=== PATIENT | male | born 1980 | race African-American/Black ===

== ENCOUNTER 2018-01-29 23:55 | Emergency (ER) | payer SELFPAY ==
[2018-01-30] MEDS ORDERED: NA CHLORIDE 0.9% 100 ML IV ONE (00:47)
[2018-01-30] MEDS ORDERED: CEFTRIAXONE 1000 MG/VIAL ONE (00:47)
[2018-01-30 01:49] LABS: Absolute Lymphocytes (CBC) 3.8 K/uL (0.7-4.9); Absolute Monocytes 0.8 K/uL (0.1-1.3); Absolute Neutrophil 7.7 K/uL (1.8-8.0); Basophils % 0.3 % (0-1.3); Eosinophils % 1.2 % (0-4.4); Hematocrit 36.3 % (39.6-49.0); Lymphocytes % 30.4 % (15.3-44.8); MCH 28.9 pg (27.0-35.0); MCV 86.7 fL (80-100); MPV 8.1 fL (7.6-11.3); Monocytes % 6.5 % (3.3-12.3); RBC Red Blood Cell Count 4.18 M/uL (4.33-5.43)
[2018-01-30 01:57] LABS: BUN Blood Urea Nitrogen 14 mg/dL (7-18); Bicarbonate 29 mmol/L (21-32); Glucose Level 109 mg/dL (74-106); Potassium 3.4 mmol/L (3.5-5.1); Sodium Level 142 mmol/L (136-145)
--- NOTE | 2018-01-30 02:25 | ER ---
Nurse's Notes [facility] Name: Gautam Dixon Jr Age: 37 yrs Sex: Male : 1980 Arrival Date: 01/29/2018 Time: 23:56 Bed 20 Private MD: Diagnosis: Cellulitis of right upper limb Presentation: 01/30 00:14 Presenting complaint: Patient states: Reports he was stung by an insect this AM in his ea right forearm. Reports the swelling started in the right wrist area and moved to his right forearm by this evening. Pt reports he removed a stinger from his right forearm about an hour ago. Transition of care: patient was not received from another setting of care. Onset: The symptoms/episode began/occurred this morning. Anaphylaxis evaluation, no signs or symptoms of anaphylaxis were noted. Onset of symptoms was January 30, 2018. Risk Assessment: Do you want to hurt yourself or someone else? Patient reports no desire to harm self or others. Initial Sepsis Screen: Does the patient meet any 2 criteria? No. Patient's initial sepsis screen is negative. Does the patient have a suspected source of infection? No. Patient's initial sepsis screen is negative. Care prior to arrival: None. 00:14 Method Of Arrival: Ambulatory ea 00:14 Acuity: SASHA 4 ea Triage Assessment: 00:19 General: Appears in no apparent distress. Behavior is calm, cooperative, appropriate ea for age. Pain: Complains of pain in right wrist, right hand and palmar aspect of right forearm Pain currently is 5 out of 10 on a pain scale. Pain began this AM Is continuous. EENT: No signs and/or symptoms were reported regarding the EENT system. Neuro: Level of Consciousness is awake, alert, obeys commands, Oriented to person, place, time, situation. Cardiovascular: Heart tones S1 S2 present Patient's skin is warm and dry. Respiratory: Airway is patent Respiratory effort is even, unlabored, Respiratory pattern is regular, symmetrical, Breath sounds are clear bilaterally. GI: Abdomen is non-distended, Bowel sounds present X 4 quads. : No signs and/or symptoms were reported regarding the genitourinary system. Derm: warmth and swelling noted to right forearm and wrist. Musculoskeletal: Circulation, motion, and sensation intact. Historical: - Allergies: 00:18 No Known Allergies; ea - Home Meds: 00:18 Amoxicillin Oral [Active]; ea - PMHx: 00:18 None; ea - PSHx: 00:18 None; ea - Immunization history:: Adult Immunizations up to date. - Social history:: Smoking status: Patient uses tobacco products, denies chronic smoking, but will smoke occasionally. - Ebola Screening: : No symptoms or risks identified at this time. Screenin:21 Abuse screen: Denies threats or abuse. Nutritional screening: No deficits noted. ea Tuberculosis screening: No symptoms or risk factors identified. Fall Risk None identified. Assessment: 01:06 Reassessment: Patient and/or family updated on plan of care and expected duration. Pain ea level reassessed. Patient is alert, oriented x 3, equal unlabored respirations, skin warm/dry/pink. Respiratory: Airway is patent Respiratory effort is even, unlabored, Respiratory pattern is regular, symmetrical, Breath sounds are clear bilaterally. 02:37 Reassessment: Patient and/or family updated on plan of care and expected duration. Pain ea level reassessed. Patient is alert, oriented x 3, equal unlabored respirations, skin warm/dry/pink. Discharge instructions given to patient, verbalized the understanding of instruction. Vital Signs: 00:21 BP 175 / 95; Pulse 89; Resp 18; Temp 99(O); Pulse Ox 98% on R/A; Weight 113.4 kg; ea Height 5 ft. 5 in. (165.10 cm); Pain 5/10; 01:00 BP 125 / 70; Pulse 68; Resp 18; Pulse Ox 99% ; ea 00:21 Body Mass Index 41.60 (113.40 kg, 165.10 cm) ea ED Course: 01/29 23:56 Patient arrived in ED. am2 01/30 00:06 Eddie Kimble MD is Attending Physician. 00:14 Capri Cornell RN is Primary Nurse. ea 00:17 Triage completed. ea 00:22 Patient has correct armband on for positive identification. Bed in low position. Call ea light in reach. 00:22 Arm band placed on right wrist. Patient placed in an exam room, on a stretcher, on ea pulse oximetry. 00:45 Inserted saline lock: 20 gauge in left antecubital area, using aseptic technique. Blood ea collected. 02:38 No provider procedures requiring assistance completed. IV discontinued, intact, ea bleeding controlled, No redness/swelling at site. Pressure dressing applied. Administered Medications: 00:32 CANCELLED (Duplicate Order): Rocephin - (cefTRIAXone) 1 grams IVPB once over 30 mins; gs (mix in 50 mL NS) 01:06 Drug: Rocephin - (cefTRIAXone) 1 grams Route: IVPB; Infused Over: 30 mins; Site: left ea antecubital; 01:36 Follow up: Response: No adverse reaction; IV Status: Completed infusion; IV Intake: 50mlea Intake: 01:36 IV: 50ml; Total: 50ml. ea Outcome: 02:24 Discharge ordered by . gs 02:39 Discharged to home ambulatory, with family. ea 02:39 Condition: improved 02:39 Discharge instructions given to patient, Instructed on discharge instructions, follow up and referral plans. medication usage, Demonstrated understanding of instructions, follow-up care, medications. 02:41 Patient left the ED. ea Signatures: Tracie Castano Elena, RN RN ea Starr, Gregory, MD MD gs
--- NOTE | 2018-01-30 02:25 | EDPHYS ---
Physician Documentation [facility] Name: Gautam Dixon Jr Age: 37 yrs Sex: Male : 1980 Arrival Date: 01/29/2018 Time: 23:56 Bed 20 Private MD: ED Physician Eddie Kimble HPI: 01/30 02:18 This 37 yrs old Black Male presents to ER via Ambulatory with complaints of cellulitis. gs 02:18 The patient presents with cellulitis of the dorsal aspect of right forearm, the patient gs presents with a swollen area of the dorsal aspect of right forearm and palmar aspect of right forearm. Description: The affected area is moderate sized, erythematous. Onset: The symptoms/episode began/occurred 2 day(s) ago, and became persistent. Possible cause(s): insect sting. Associated signs and symptoms: Pertinent positives: erythema, swelling, Pertinent negatives: foreign body sensation, fever. Modifying factors: the symptoms are alleviated by nothing, the symptoms are aggravated by nothing. Severity of symptoms: At their worst the symptoms were moderate, in the emergency department the symptoms are unchanged. The patient has not experienced similar symptoms in the past. Historical: - Allergies: 00:18 No Known Allergies; ea - Home Meds: 00:18 Amoxicillin Oral [Active]; ea - PMHx: 00:18 None; ea - PSHx: 00:18 None; ea - Immunization history:: Adult Immunizations up to date. - Social history:: Smoking status: Patient uses tobacco products, denies chronic smoking, but will smoke occasionally. - Ebola Screening: : No symptoms or risks identified at this time. ROS: 02:18 Constitutional: Negative for fever. gs 02:18 MS/extremity: Negative for decreased range of motion. 02:18 All other systems are negative. Exam: 02:18 Head/Face: Normocephalic, atraumatic. Eyes: Pupils equal round and reactive to light, gs extra-ocular motions intact. Lids and lashes normal. Conjunctiva and sclera are non-icteric and not injected. Cornea within normal limits. Periorbital areas with no swelling, redness, or edema. ENT: Nares patent. No nasal discharge, no septal abnormalities noted. Tympanic membranes are normal and external auditory canals are clear. Oropharynx with no redness, swelling, or masses, exudates, or evidence of obstruction, uvula midline. Mucous membranes moist. Neck: Trachea midline, no thyromegaly or masses palpated, and no cervical lymphadenopathy. Supple, full range of motion without nuchal rigidity, or vertebral point tenderness. No Meningismus. Chest/axilla: Normal chest wall appearance and motion. Nontender with no deformity. No lesions are appreciated. Cardiovascular: Regular rate and rhythm with a normal S1 and S2. No gallops, murmurs, or rubs. Normal PMI, no JVD. No pulse deficits. Respiratory: Lungs have equal breath sounds bilaterally, clear to auscultation and percussion. No rales, rhonchi or wheezes noted. No increased work of breathing, no retractions or nasal flaring. Abdomen/GI: Soft, non-tender, with normal bowel sounds. No distension or tympany. No guarding or rebound. No evidence of tenderness throughout. Back: No spinal tenderness. No costovertebral tenderness. Full range of motion. Neuro: Awake and alert, GCS 15, oriented to person, place, time, and situation. Cranial nerves II-XII grossly intact. Motor strength 5/5 in all extremities. Sensory grossly intact. Cerebellar exam normal. Normal gait. 02:18 Constitutional: The patient appears alert, awake. 02:18 Musculoskeletal/extremity: Extremities: ROM: no acute changes, Circulation is intact in all extremities. Pulses: are normal with no appreciated deficits, Sensation intact. Compartment Syndrome exam of affected extremity: the dorsal aspect of right forearm and palmar aspect of right forearm is normal. no pain, no numbness, no tingling, no sensation deficit, no palor, no weak pulses. 02:18 Musculoskeletal/extremity: Extremities: noted in the dorsal aspect of right forearm and palmar aspect of right forearm: swelling, tenderness. 02:18 Skin: cellulitis, that is moderate, well demarcated, on the dorsal aspect of right forearm and palmar aspect of right forearm. Vital Signs: 00:21 BP 175 / 95; Pulse 89; Resp 18; Temp 99(O); Pulse Ox 98% on R/A; Weight 113.4 kg; ea Height 5 ft. 5 in. (165.10 cm); Pain 5/10; 01:00 BP 125 / 70; Pulse 68; Resp 18; Pulse Ox 99% ; ea 00:21 Body Mass Index 41.60 (113.40 kg, 165.10 cm) ea MDM: 00:29 Patient medically screened. 02:18 Differential diagnosis: cellulitis. Data reviewed: vital signs, nurses notes. Response gs to treatment: the patient's symptoms have mildly improved after treatment, and as a result, I will discharge patient. 01/30 00:32 Order name: CBC with Diff; Complete Time: 02:18 01/30 00:32 Order name: Basic Metabolic Panel; Complete Time: 02:14 01/30 00:32 Order name: Blood Culture* gs Administered Medications: 00:32 CANCELLED (Duplicate Order): Rocephin - (cefTRIAXone) 1 grams IVPB once over 30 mins; gs (mix in 50 mL NS) 01:06 Drug: Rocephin - (cefTRIAXone) 1 grams Route: IVPB; Infused Over: 30 mins; Site: left ea antecubital; 01:36 Follow up: Response: No adverse reaction; IV Status: Completed infusion; IV Intake: 50mlea Disposition: 01/30/18 02:24 Discharged to Home. Impression: Cellulitis of right upper limb. - Condition is Stable. - Discharge Instructions: Cellulitis, Adult. - Prescriptions for Keflex 500 mg Oral Capsule - take 2 capsule by ORAL route every 12 hours for 7 days; 28 capsule. - Medication Reconciliation Form, Thank You Letter, Antibiotic Education, Prescription Opioid Use form. - Follow up: Private Physician; When: 1 - 2 days; Reason: Recheck today's complaints, Re-evaluation by your physician. Signatures: Dispatcher [employer] Capri Rodney RN RN ea Starr, Gregory, MD MD gs Corrections: (The following items were deleted from the chart) 00:32 00:30 Rocephin - (cefTRIAXone) 1 grams IVPB once over 30 mins; (mix in 50 mL NS) gs ordered. 02:41 02:24 01/30/2018 02:24 Discharged to Home. Impression: Cellulitis of right upper limb. ea Condition is Stable. Forms are Medication Reconciliation Form, Thank You Letter, Antibiotic Education, Prescription Opioid Use. Follow up: Private Physician; When: 1 - 2 days; Reason: Recheck today's complaints, Re-evaluation by your physician. gs
== END 2018-01-30 02:41 | disposition home or self-care (01) ==
LOC: ER 23:55
DX: L03.113 Cellulitis of right upper limb (principal); Z72.0 Tobacco use
CPT/HCPCS: 36415; 80048; 85025; 87040; 96365; 99284

== ENCOUNTER 2019-04-01 23:36 | Emergency (ER) | payer SELFPAY ==
[2019-04-02 00:43] LABS: Absolute Lymphocytes (CBC) 3.5 K/uL (0.7-4.9); Hematocrit 38.4 % (39.6-49.0); Lymphocytes % 34.3 % (15.3-44.8); MPV 7.9 fL (7.6-11.3); RBC Red Blood Cell Count 4.36 M/uL (4.33-5.43)
[2019-04-02 00:53] LABS: Urine Bacteria <20 /HPF (NONE SEEN); Urine Culture Reflex Order REFLEXED; Urine Mucus HEAVY /HPF (NONE SEEN); Urine RBC <5 /HPF (NONE SEEN)
[2019-04-02 01:05] LABS: ALT/SGPT 29 U/L (12-78); AST/SGOT 19 U/L (15-37); Alkaline Phosphatase 69 U/L (45-117); BUN Blood Urea Nitrogen 20 mg/dL (7-18); Bicarbonate 27 mmol/L (21-32); Bilirubin Direct < 0.1 mg/dL (0-0.2); Bilirubin Total 0.2 mg/dL (0.2-1.0); Glucose Level 97 mg/dL (74-106); Lipase 191 U/L (73-393); Potassium 3.5 mmol/L (3.5-5.1); Protein, Total 7.8 g/dL (6.4-8.2); Sodium Level 142 mmol/L (136-145)
[2019-04-02] MEDS ORDERED: KETOROLAC 30 MG/ML INJ ONE (01:30)
--- NOTE | 2019-04-02 02:34 | ER ---
Nurse's Notes [facility] [place], [place] Name: Gautam Dixon Jr Age: 39 yrs Sex: Male : 1980 Arrival Date: 04/01/2019 Time: 23:39 Bed 13 Private MD: Diagnosis: Epididymitis-left Presentation: 04/01 23:48 Presenting complaint: Patient states: that his left testicle is swollen and painful. fc Noticed it 5 days ago. Was seen at the clinic in [place] and given antibiotics. Still taking the Levaquin daily. STates that he came in today because the pain has gotten no better and he now also has a migraine. Transition of care: patient was not received from another setting of care. Onset of symptoms was March 27, 2019. Risk Assessment: Do you want to hurt yourself or someone else? Patient reports no desire to harm self or others. Initial Sepsis Screen: Does the patient meet any 2 criteria? No. Patient's initial sepsis screen is negative. Does the patient have a suspected source of infection? No. Patient's initial sepsis screen is negative. Care prior to arrival: Medication(s) given: Levaquin. 23:48 Method Of Arrival: Ambulatory 23:48 Acuity: SASHA 4 fc Historical: - Allergies: 23:54 No Known Allergies; fc - Home Meds: 23:54 None [Active]; fc - PMHx: 23:54 None; fc - PSHx: 23:54 testicular torsion; fc - Immunization history:: Last tetanus immunization: up to date Flu vaccine is not up to date. - Social history:: Smoking status: Patient uses tobacco products, smokes one-half pack cigarettes per day, Patient uses alcohol, but reports only rare drinking. street drugs, Patient/guardian denies using street drugs, the patient reports quitting approximately .25 years ago. - Ebola Screening: : Patient negative for fever greater than or equal to 101.5 degrees Fahrenheit, and additional compatible Ebola Virus Disease symptoms Patient denies exposure to infectious person Patient denies travel to an Ebola-affected area in the 21 days before illness onset. Screenin/25 00:20 Abuse screen: Denies threats or abuse. Denies injuries from another. Nutritional rr5 screening: No deficits noted. Tuberculosis screening: No symptoms or risk factors identified. Fall Risk IV access (20 points). Total Guaman Fall Scale indicates No Risk (0-24 pts). Assessment: 00:20 General: Appears in no apparent distress. uncomfortable, Behavior is calm, cooperative, rr5 appropriate for age. Pain: Complains of pain in scrotal Pain does not radiate. Pain currently is 8 out of 10 on a pain scale. Quality of pain is described as aching, Pain began gradually, Is intermittent. 00:20 Neuro: Level of Consciousness is awake, alert, obeys commands, Oriented to person, rr5 place, time, situation, Appropriate for age. Cardiovascular: Capillary refill < 3 seconds Patient's skin is warm and dry. Respiratory: Airway is patent Respiratory effort is even, unlabored, Respiratory pattern is regular, symmetrical. GI: No signs and/or symptoms were reported involving the gastrointestinal system. : Urine is clear, Reports pain scrotum, scrotal swelling. EENT: No signs and/or symptoms were reported regarding the EENT system. Derm: Skin is intact, Skin temperature is warm. Musculoskeletal: Circulation, motion, and sensation intact. Capillary refill < 3 seconds. 01:30 Reassessment: Patient appears in no apparent distress at this time. Patient is alert, rr5 oriented x 3, equal unlabored respirations, skin warm/dry/pink. for pain medication given, see AUG. 02:32 Reassessment: Patient appears in no apparent distress at this time. Patient and/or jv1 family updated on plan of care and expected duration. Pain level reassessed. Patient is alert, oriented x 3, equal unlabored respirations, skin warm/dry/pink. pt has just finished ultrasound. 03:17 Reassessment: Patient appears in no apparent distress at this time. Patient and/or jv1 family updated on plan of care and expected duration. Pain level reassessed. Patient is alert, oriented x 3, equal unlabored respirations, skin warm/dry/pink. Patient states feeling better. Patient states symptoms have improved. Vital Signs: 04/01 23:48 BP 159 / 90; Pulse 86; Resp 18; Temp 98.4(O); Pulse Ox 97% on R/A; Weight 113.4 kg (R); fc Height 5 ft. 6 in. (167.64 cm) (R); Pain 02/16; 04/02 01:30 BP 164 / 99; Pulse 64; Resp 16; Pulse Ox 99% ; Pain 8/10; rr5 02:15 BP 138 / 84; Pulse 60; Resp 17; Pulse Ox 98% on R/A; rr5 02:31 BP 146 / 89; Pulse 61; Resp 18; Temp 98.5; Pulse Ox 99% ; Pain 6/10; jv1 03:17 BP 127 / 79; Pulse 61; Resp 18; Temp 98.6; Pulse Ox 99% ; Pain 3/10; jv1 04/01 23:48 Body Mass Index 40.35 (113.40 kg, 167.64 cm) ED Course: 04/01 23:39 Patient arrived in ED. ag3 23:48 Melecio Rice PA is PHCP. cp 23:48 Eddie Kimble MD is Attending Physician. cp 23:48 Arm band placed on Patient placed in an exam room, on a stretcher. fc 23:50 Triage completed. 04/02 00:05 Geovanny Middleton RN is Primary Nurse. rr5 00:15 Urine collected: clean catch specimen, clear. rr5 00:20 Warm blanket given. Head of bed elevated. rr5 00:20 Inserted saline lock: 20 gauge in left forearm, using aseptic technique. Blood rr5 collected. 01:37 Patient has correct armband on for positive identification. Placed in gown. Bed in low rr5 position. Call light in reach. Side rails up X2. 02:22 Ultrasound completed. Patient tolerated well. Patient moved back from ultrasound. lc3 02:29 US Scrotum Testicles In Process Unspecified. EDMS 02:33 Jayed Damon MD is Referral Physician. cp 03:30 IV discontinued, intact, bleeding controlled, No redness/swelling at site. Pressure jv1 dressing applied. 03:30 No provider procedures requiring assistance completed. jv1 Administered Medications: 01:33 Drug: TORadol 30 mg Route: IVP; Site: left forearm; rr5 02:30 Follow up: Response: No adverse reaction; Pain is decreased jv1 02:50 Drug: Zithromax 1 grams Route: PO; jv1 03:30 Follow up: Response: No adverse reaction jv1 03:00 Drug: Rocephin - (cefTRIAXone) 1 grams Route: IVPB; Infused Over: 30 mins; Site: left jv1 forearm; 03:30 Follow up: Response: No adverse reaction jv1 03:53 Follow up: IV Status: Completed infusion jv1 Outcome: 02:33 Discharge ordered by . alma 03:30 Discharged to home ambulatory. jv1 03:30 Condition: improved 03:30 Discharge instructions given to patient, Instructed on discharge instructions, follow up and referral plans. Demonstrated understanding of Prescriptions given X 3. 03:55 Patient left the ED. jv1 Signatures: Dispatcher [employer] EDLroeto Alegria, RN RN Melecio Rolon PA PA cp Cunningham, Laulita lc3 Vicente, Joyce, RN RN jv1 Estelle Campbell ag3 Geovanny Middleton, RN RN rr5
--- NOTE | 2019-04-02 02:34 | EDPHYS ---
Physician Documentation [facility] Name: Gautam Dixon Jr Age: 39 yrs Sex: Male : 1980 Arrival Date: 04/01/2019 Time: 23:39 Bed 13 Private MD: ED Physician Eddie Kimble HPI: 04/02 00:15 This 39 yrs old Black Male presents to ER via Ambulatory with complaints of Testicular cp Pain. 00:15 The patient presents with swelling, of the left testicle, tenderness, of the left cp testicle. 00:15 Onset: The symptoms/episode began/occurred 5 day(s) ago. cp 00:15 Associated signs and symptoms: Pertinent negatives: constipation, diarrhea, dysuria, cp fever, hematuria, nausea, vomiting. Severity of symptoms: in the emergency department the symptoms are unchanged. Historical: - Allergies: 04/01 23:54 No Known Allergies; fc - Home Meds: 23:54 None [Active]; fc - PMHx: 23:54 None; fc - PSHx: 23:54 testicular torsion; fc - Immunization history:: Last tetanus immunization: up to date Flu vaccine is not up to date. - Social history:: Smoking status: Patient uses tobacco products, smokes one-half pack cigarettes per day, Patient uses alcohol, but reports only rare drinking. street drugs, Patient/guardian denies using street drugs, the patient reports quitting approximately .25 years ago. - Ebola Screening: : Patient negative for fever greater than or equal to 101.5 degrees Fahrenheit, and additional compatible Ebola Virus Disease symptoms Patient denies exposure to infectious person Patient denies travel to an Ebola-affected area in the 21 days before illness onset. ROS: 04/02 00:20 Constitutional: Negative for body aches, chills, fever, poor PO intake. cp 00:20 Eyes: Negative for injury, pain, redness, and discharge. cp 00:20 Cardiovascular: Negative for chest pain. 00:20 Respiratory: Negative for cough, wheezing. 00:20 Abdomen/GI: Negative for nausea, vomiting, and diarrhea, vomiting, diarrhea, constipation, anorexia, black/tarry stool, rectal bleeding. 00:20 Back: Negative for radiated pain. 00:20 : Positive for testicular pain Negative for urinary symptoms, hematuria. 00:20 Skin: Negative for cellulitis, rash. 00:20 Neuro: Positive for headache, Negative for altered mental status. 00:20 All other systems are negative. Exam: 00:30 Constitutional: The patient appears in no acute distress, alert, awake, non-toxic, well cp developed, well nourished, obese. 00:30 Head/Face: Normocephalic, atraumatic. cp 00:30 Eyes: Periorbital structures: appear normal, Conjunctiva: normal, no exudate, no injection, Sclera: no appreciated abnormality, Lids and lashes: appear normal, bilaterally. 00:30 ENT: External ear(s): are unremarkable, Nose: is normal, Mouth: Lips: moist, Oral mucosa: moist, Posterior pharynx: Airway: no evidence of obstruction, patent. 00:30 Chest/axilla: Inspection: normal. 00:30 Cardiovascular: Rate: normal, Rhythm: regular. 00:30 Respiratory: the patient does not display signs of respiratory distress, Respirations: normal, no use of accessory muscles, no retractions, labored breathing, is not present. 00:30 Abdomen/GI: Inspection: abdomen appears normal, Bowel sounds: active, all quadrants, Palpation: soft, in all quadrants, mild abdominal tenderness, in the left lower quadrant, rebound tenderness, is not appreciated, voluntary guarding, is not appreciated. 00:30 Back: pain, is absent, ROM is normal. 00:30 : Male external genitalia: swelling, of the left testicle is noted, of the epididymis area, that is mild, tenderness, of the left testicle is noted, of the epididymis area, that is mild. 00:30 Skin: no rash present. Vital Signs: 04/01 23:48 BP 159 / 90; Pulse 86; Resp 18; Temp 98.4(O); Pulse Ox 97% on R/A; Weight 113.4 kg (R); fc Height 5 ft. 6 in. (167.64 cm) (R); Pain 9/10; 04/02 01:30 BP 164 / 99; Pulse 64; Resp 16; Pulse Ox 99% ; Pain 8/10; rr5 02:15 BP 138 / 84; Pulse 60; Resp 17; Pulse Ox 98% on R/A; rr5 02:31 BP 146 / 89; Pulse 61; Resp 18; Temp 98.5; Pulse Ox 99% ; Pain 6/10; jv1 03:17 BP 127 / 79; Pulse 61; Resp 18; Temp 98.6; Pulse Ox 99% ; Pain 3/10; jv1 04/01 23:48 Body Mass Index 40.35 (113.40 kg, 167.64 cm) fc MDM: 04/01 23:57 Patient medically screened. cp 04/02 02:30 ED course: Received phone report from [employer] that testicular US negative for torsion. cp 02:32 Data reviewed: vital signs, nurses notes, lab test result(s), radiologic studies, cp ultrasound. 02:32 Counseling: I had a detailed discussion with the patient and/or guardian regarding: the cp historical points, exam findings, and any diagnostic results supporting the discharge/admit diagnosis, lab results, radiology results, to return to the emergency department if symptoms worsen or persist or if there are any questions or concerns that arise at home. Response to treatment: the patient's symptoms have mildly improved after treatment, and as a result, I will discharge patient. 04/02 00:02 Order name: Urine Microscopic Only; Complete Time: : cp 04/02 00:02 Order name: Basic Metabolic Panel; Complete Time: : cp 04/02 01:19 Interpretation: Normal except: CL 110; BUN 20; GFR 82. cp 04/02 00:02 Order name: CBC with Diff; Complete Time: : cp 04/02 01:19 Interpretation: Normal except: HGB 13.0; HCT 38.4; RDW 15.6. cp 04/02 00:02 Order name: Creatinine for Radiology; Complete Time: : cp 04/02 00:02 Order name: Hepatic Function; Complete Time: : cp 04/02 00:02 Order name: Lipase; Complete Time: : cp 04/02 00:02 Order name: Urine Dipstick-Ancillary (obtain specimen); Complete Time: 01: cp 04/02 00:02 Order name: IV Saline Lock; Complete Time: 01: cp 04/02 00:02 Order name: GC (GONORR/CHLAMYDIA) Probe cp 04/02 00:02 Order name: US Scrotum Testicles cp 04/02 00:54 Order name: Urine Culture EDOR 04/02 00:02 Order name: Labs collected and sent; Complete Time: 01:00 cp Administered Medications: 01:33 Drug: TORadol 30 mg Route: IVP; Site: left forearm; rr5 02:30 Follow up: Response: No adverse reaction; Pain is decreased jv1 02:50 Drug: Zithromax 1 grams Route: PO; jv1 03:30 Follow up: Response: No adverse reaction jv1 03:00 Drug: Rocephin - (cefTRIAXone) 1 grams Route: IVPB; Infused Over: 30 mins; Site: left jv1 forearm; 03:30 Follow up: Response: No adverse reaction jv1 03:53 Follow up: IV Status: Completed infusion jv1 Disposition: 04/02/19 02:33 Discharged to Home. Impression: Epididymitis - left. - Condition is Stable. - Discharge Instructions: Epididymitis, Testicular Self-Exam, Form - Return To Work. - Prescriptions for Naprosyn 500 mg Oral Tablet - take 1 tablet by ORAL route 2 times per day take with food; 20 tablet. Doxycycline Hyclate 100 mg Oral Tablet - take 1 tablet by ORAL route every 12 hours; 20 tablet. Tramadol 50 mg Oral Tablet - take 1 tablet by ORAL route every 8 hours as needed; 12 tablet. - Medication Reconciliation Form, Thank You Letter, Antibiotic Education, Prescription Opioid Use, Work release form form. - Follow up: Jayde Damon MD; When: 2 - 3 days; Reason: Worsening of condition. - Problem is new. - Symptoms have improved. Signatures: Dispatcher [employer] EDMS Loreto Olvera RN RN Melecio Rice PA PA cp Genevieve Lindsey RN RN jv1 Geovanny Middleton RN RN rr5 Corrections: (The following items were deleted from the chart) 03:55 02:33 04/02/2019 02:33 Discharged to Home. Impression: Epididymitis - left. Condition jv1 is Stable. Forms are Medication Reconciliation Form, Thank You Letter, Antibiotic Education, Prescription Opioid Use. Follow up: Jayde Damon; When: 2 - 3 days; Reason: Worsening of condition. Problem is new. Symptoms have improved. cp
[2019-04-02] MEDS ORDERED: CEFTRIAXONE/SWI 1gm 1 GM/10 ML SYR ONE (02:58)
[2019-04-02] MEDS ORDERED: AZITHROMYCIN 250 MG TAB ONE (02:58)
[2019-04-02 04:07] VITALS: O2SAT 99
[2019-04-02 04:09] VITALS: BP 127/79; TEMP 98.6
--- NOTE | 2019-04-05 13:33 | RAD REPORT ---
EXAM DESCRIPTION: Scrotum Testicles CLINICAL HISTORY: 39 years Male, PAIN COMPARISON: None. TECHNIQUE: Sonographic imaging of the scrotum was performed. FINDINGS: Right testicle measures 4.6 cm x 2.5 cm x 3 cm. Left testicle measures 3.9 cm x 2.4 cm x 2 .8 cm. Both testes demonstrate Doppler flow. Left testicle is slightly decreased in size relative to the right questionable slight increased echogenicity. There is a mixed anechoic and hypoechoic left epididymal head structure suggestive of a cyst measurin g up to 2.8 cm. No significant scrotal fluid collection. IMPRESSION: 1. Both testes demonstrate Doppler flow. Left testicle is slightly smaller than the righ t. 2. Complex cystic structure near the upper pole of the left testicle suggestive of a epididymal head cyst versus spermatocele. Electronically signed by: Andry Xavier MD 04/02/2019 3:21 AM CDT Due to temporary technical issues with the PACS/Fluency reporting system, reports are being signed by the in house radiologist as a courtesy to ensure prompt reporting. The interpreting radiologist is f ully responsible for the content of the report.
[2019-04-06 14:47] LABS: C.trachomatis RNA,TMA Not Detected (Not Detected)
== END 2019-04-02 03:55 | disposition home or self-care (01) ==
LOC: ER 23:36
DX: N45.1 Epididymitis (principal); F17.210 Nicotine dependence, cigarettes, uncomplicated
CPT/HCPCS: 36415; 76870; 80048; 80076; 81015; 83690; 85025; 87086; 87088; 87490; 87590; 96365; 96375; 99284; J0696

== ENCOUNTER 2020-08-24 19:07 | Emergency (ER) | payer OTHER, SELFPAY ==
[2020-08-24] MEDS ORDERED: IBUPROFEN 400 MG TAB ONE (19:38)
--- NOTE | 2020-08-24 19:48 | RAD REPORT ---
EXAM DESCRIPTION: RAD - Elbow Left 3 View - 08/24/2020 7:33 pm CLINICAL HISTORY: r/o fb, laceration and trauma COMPARISON: None. FINDINGS: No fracture is identified and no elevated posterior fat pad. There is no dislocation or pe riosteal reaction noted. No foreign body or other soft tissue abnormality. IMPRESSION: No foreign body. No acute bone or joint finding.
[2020-08-24] MEDS ORDERED: LIDOCAINE 1% MPF 5 ML VIAL ONE (20:03)
--- NOTE | 2020-08-24 20:52 | ER ---
Nurse's Notes [facility] Name: Gautam Dixon Jr Age: 40 yrs Sex: Male : 1980 Arrival Date: 08/24/2020 Time: 19:09 Bed 25 Private MD: Diagnosis: Laceration without foreign body of left upper arm Presentation: 08/24 19:16 Chief complaint: Patient states: Lac on L elbow 30 mins by a nail on a fence. Bleeding ca1 controlled. Coronavirus screen: Client denies travel out of the [place] in the last 14 days. At this time, the client does not indicate any symptoms associated with coronavirus-19. Ebola Screen: Patient negative for fever greater than or equal to 101.5 degrees Fahrenheit, and additional compatible Ebola Virus Disease symptoms Patient denies exposure to infectious person. Patient denies travel to an Ebola-affected area in the 21 days before illness onset. No symptoms or risks identified at this time. Initial Sepsis Screen: Does the patient meet any 2 criteria? No. Patient's initial sepsis screen is negative. Does the patient have a suspected source of infection? No. Patient's initial sepsis screen is negative. Risk Assessment: Do you want to hurt yourself or someone else? Patient reports no desire to harm self or others. Onset of symptoms was August 24, 2020. 19:16 Method Of Arrival: Ambulatory ca1 19:16 Acuity: SASHA 4 ca1 19:16 Acuity: SASHA 3 ca1 Historical: - Allergies: 19:18 No Known Allergies; ca1 - Home Meds: 19:18 None [Active]; ca1 - PMHx: 19:18 None; ca1 - PSHx: 19:18 testicular torsion; ca1 - Immunization history:: Last tetanus immunization: < 5 years ago. - Social history:: Smoking status: Patient reports the use of cigarette tobacco products, denies chronic smoking, but will smoke occasionally. Screenin:45 Abuse screen: Denies threats or abuse. Denies injuries from another. Nutritional ca1 screening: No deficits noted. Tuberculosis screening: No symptoms or risk factors identified. Fall Risk None identified. Assessment: 19:45 General: Appears in no apparent distress. comfortable, Behavior is calm, cooperative, ca1 appropriate for age. Pain: Complains of pain in left elbow Pain currently is 7 out of 10 on a pain scale. Pain:. Neuro: Level of Consciousness is awake, alert, obeys commands, Oriented to person, place, time, situation. Derm: Skin is healthy with good turgor, Skin is pink, warm \\T\\ dry. Musculoskeletal: Circulation, motion, and sensation intact. Capillary refill < 3 seconds. Injury Description: Laceration sustained to left elbow is jagged, 2.6 to 7.5 cm long, not bleeding, was sustained 30-60 minutes ago. a small amount of bleeding noted at this time. 21:05 Reassessment: Patient appears in no apparent distress at this time. Patient is alert, ca1 oriented x 3, equal unlabored respirations, skin warm/dry/pink. 21:05 Reassessment: Pt states, " my bp is always high" Pt is asymptomatic. Notified celina Broussard TRACK ANNOUNCER. Provider says it's fine. Vital Signs: 19:16 BP 159 / 109; Pulse 110; Resp 16 S; Temp 97.3(TE); Pulse Ox 99% on R/A; Weight 104.33 ca1 kg (R); Height 5 ft. 6 in. (167.64 cm) (R); Pain 9/10; 21:08 BP 185 / 90; Pulse 100; Resp 16 S; Pulse Ox 100% on R/A; ca1 19:16 Body Mass Index 37.12 (104.33 kg, 167.64 cm) ca1 ED Course: 19:09 Patient arrived in ED. es 19:16 [facility] Velazquez F[facility]-C [facility]. kb 19:16 Serafin Kathleen MD is Attending Physician. kb 19:18 Triage completed. ca1 19:18 Arm band placed on right wrist. ca1 19:34 Elbow Left 3 View XRAY In Process Unspecified. EDMS 19:45 Patient has correct armband on for positive identification. Placed in gown. Bed in low ca1 position. Call light in reach. Side rails up X 1. Pulse ox on. NIBP on. 21:00 Assist provider with laceration repair on left elbow that was between 2.6 to 7.5 cm ca1 using sutures. Set up tray. Performed by Aarti LUCAS Dressed with 4X4s, Rosenda, Neosporin, Patient tolerated well. 21:00 Patient did not have IV access during this emergency room visit. ca1 21:02 Barby Ayala, RN is Primary Nurse. ca1 Administered Medications: 19:23 Drug: Ibuprofen 800 mg Route: PO; ca1 Outcome: 20:50 Discharge ordered by MD. louie 21: Discharged to home ambulatory. ca1 21: Condition: stable 21:09 Discharge instructions given to patient, Instructed on discharge instructions, follow up and referral plans. wound care, Demonstrated understanding of instructions, follow-up care, wound care. 21:09 Patient left the ED. ca1 Signatures: Dispatcher [employer] EDAarti Valderrama, LEAD QA ANALYST-C LEAD QA ANALYST-Gabriela Jose Cheryl, RN RN ca1 Corrections: (The following items were deleted from the chart) 19:23 19:16 Pulse 110bpm; Resp 16bpm; Spontaneous; Pulse Ox 99% RA; Temp 97.3F Temporal; ca1 104.33 kg Reported; Height 5 ft. 6 in. Reported; BMI: 37.1; Pain 9/10; ca1 21:09 21:05 Reassessment: Pt states, " my bp is always high" ca1 ca1
--- NOTE | 2020-08-24 20:52 | EDPHYS ---
Physician Documentation [facility] Name: Gautam Dixon Jr Age: 40 yrs Sex: Male : 1980 Arrival Date: 08/24/2020 Time: 19:09 Bed 25 Private MD: ED Physician Serafin Kathleen HPI: 08/24 22:35 This 40 yrs old Black Male presents to ER via Ambulatory with complaints of Foreign kb Body In Arm. 22:35 The patient has a laceration related to: working, piece of wood, occurred and there are kb no complicating factors. The injury was accidental. The laceration(s) is(are) located on the left tricep. Onset: The symptoms/episode began/occurred just prior to arrival. Associated signs and symptoms: The patient has no apparent associated signs or symptoms. The patient has not experienced similar symptoms in the past. The patient has not recently seen a physician. Historical: - Allergies: 19:18 No Known Allergies; ca1 - Home Meds: 19:18 None [Active]; ca1 - PMHx: 19:18 None; ca1 - PSHx: 19:18 testicular torsion; ca1 - Immunization history:: Last tetanus immunization: < 5 years ago. - Social history:: Smoking status: Patient reports the use of cigarette tobacco products, denies chronic smoking, but will smoke occasionally. ROS: 22:35 Constitutional: Negative for fever, chills, and weight loss, MS/Extremity: Negative for kb injury and deformity, Neuro: Negative for headache, weakness, numbness, tingling, and seizure. 22:35 Skin: Positive for laceration(s), of the left tricep. Exam: 22:34 Constitutional: This is a well developed, well nourished patient who is awake, alert, kb and in no acute distress. Head/Face: Normocephalic, atraumatic. Respiratory: Respirations even and unlabored. No increased work of breathing, no retractions or nasal flaring. MS/ Extremity: Pulses equal, no cyanosis. Neurovascular intact. Full, normal range of motion. Neuro: Awake and alert, GCS 15, oriented to person, place, time, and situation. Moves all extremities. Normal gait. 22:34 Skin: injury, laceration(s), the wound is approximately 3 cm(s), of the left tricep, that can be described as clean, no foreign body, irregular, without bleeding. Vital Signs: 19:16 BP 159 / 109; Pulse 110; Resp 16 S; Temp 97.3(TE); Pulse Ox 99% on R/A; Weight 104.33 ca1 kg (R); Height 5 ft. 6 in. (167.64 cm) (R); Pain 9/10; 21:08 BP 185 / 90; Pulse 100; Resp 16 S; Pulse Ox 100% on R/A; ca1 19:16 Body Mass Index 37.12 (104.33 kg, 167.64 cm) ca1 Laceration: 22:30 Wound Repair of 3cm ( 1.2in ) subcutaneous laceration to left tricep. Irregularly kb shaped.. Distal neuro/vascular/tendon intact. Anesthesia: Wound infiltrated with 4 mls of 1% lidocaine. Wound prep: cleaned with hibiclense and irrigated with saline by ENP student. Skin closed with 6 4-0 Prolene using simple sutures and sterile technique. Dressed with Kerlix. Patient tolerated well. MDM: 19:16 Patient medically screened. kb 22:30 Data reviewed: vital signs, nurses notes. Data interpreted: Pulse oximetry: on room air kb is 100 %. Interpretation: normal. Counseling: I had a detailed discussion with the patient and/or guardian regarding: the historical points, exam findings, and any diagnostic results supporting the discharge/admit diagnosis, radiology results, the need for outpatient follow up, a family practitioner, to return to the emergency department if symptoms worsen or persist or if there are any questions or concerns that arise at home. 22:33 ED course: Laceration repair completed by ENP student. . kb 08/24 19:16 Order name: Elbow Left 3 View XRAY; Complete Time: 19:52 kb Administered Medications: 19:23 Drug: Ibuprofen 800 mg Route: PO; ca1 Disposition: 08/25 05:56 Co-signature as Attending Physician, Serafin Kathleen MD. [email or web address] Disposition: 08/24/20 20:50 Discharged to Home. Impression: Laceration without foreign body of left upper arm. - Condition is Stable. - Discharge Instructions: Laceration Care, Adult, [id number]. - Medication Reconciliation Form, Thank You Letter, Antibiotic Education, Prescription Opioid Use, Work release form form. - Follow up: Emergency Department; When: As needed; Reason: Worsening of condition. Follow up: Private Physician; When: 2 - 3 days; Reason: Recheck today's complaints, Continuance of care, Re-evaluation by your physician. Signatures: Dispatcher [employer] EDAarti Valderrama, LANCE PANCHALP-Barby Talley RN RN ca1 Serafin Kathleen MD MD [email or web address] Corrections: (The following items were deleted from the chart) 08/24 21:09 20:50 08/24/2020 20:50 Discharged to Home. Impression: Laceration without foreign body ca1 of left upper arm. Condition is Stable. Forms are Medication Reconciliation Form, Thank You Letter, Antibiotic Education, Prescription Opioid Use. Follow up: Emergency Department; When: As needed; Reason: Worsening of condition. Follow up: Private Physician; When: 2 - 3 days; Reason: Recheck today's complaints, Continuance of care, Re-evaluation by your physician. kb 22:35 22:34 Constitutional: This is a well developed, well nourished patient who is awake, kb alert, and in no acute distress. Head/Face: Normocephalic, atraumatic. MS/ Extremity: Pulses equal, no cyanosis. Neurovascular intact. Full, normal range of motion. Neuro: Awake and alert, GCS 15, oriented to person, place, time, and situation. Moves all extremities. Normal gait. kb
[2020-08-24 21:18] VITALS: TEMP 97.3
[2020-08-24 21:19] VITALS: BP 185/90; O2SAT 100
== END 2020-08-24 21:09 | disposition home or self-care (01) ==
LOC: ER 19:07
PROC: 0JQF0ZZ Repair Left Upper Arm Subcutaneous Tissue and Fascia, Open Approach (ICD-10-PCS; principal; 2020-08-24)
DX: S41.112A Laceration without foreign body of left upper arm, initial encounter (principal); W26.8XXA Contact with other sharp object(s), not elsewhere classified, initial encounter; Y93.89 Activity, other specified; Y92.9 Unspecified place or not applicable; F17.210 Nicotine dependence, cigarettes, uncomplicated
CPT/HCPCS: 99284

== ENCOUNTER 2021-07-16 16:30 | Emergency (ER) | payer OTHER ==
[2021-07-16 17:19] LABS: Absolute Lymphocytes (CBC) 2.2 K/uL (0.7-4.9); Hematocrit 42.6 % (39.6-49.0); Lymphocytes % 16.5 % (15.3-44.8); MPV 7.8 fL (7.6-11.3); RBC Red Blood Cell Count 4.86 M/uL (4.33-5.43)
[2021-07-16] MEDS ORDERED: NA CHLORIDE 0.9% 1,000 ML ONE (17:19)
[2021-07-16] MEDS ORDERED: ONDANSETRON 4 MG/2 ML VIAL ONE (17:19)
--- NOTE | 2021-07-16 17:24 | RAD REPORT ---
EXAM DESCRIPTION: US - Abdomen Exam Limited - 07/16/2021 5:18 pm CLINICAL HISTORY: Abdominal pain. COMPARISON: None. FINDINGS: The gallbladder wall is not thickened. A gallstone is not seen. The biliary tree is normal caliber. IMPRESSION: Unremarkable gallbladder ultrasound.
[2021-07-16 17:57] LABS: SARS-COV-2 RT PCR NEGATIVE (NEGATIVE)
[2021-07-16 18:54] LABS: ALT/SGPT 23 U/L (12-78); AST/SGOT 13 U/L (15-37); Albumin 3.7 g/dL (3.4-5.0); Alkaline Phosphatase 64 U/L (45-117); BUN Blood Urea Nitrogen 11 mg/dL (7-18); Bicarbonate 25 mmol/L (21-32); Bilirubin Direct < 0.1 mg/dL (0-0.2); Bilirubin Total 0.3 mg/dL (0.2-1.0); Glucose Level 102 mg/dL (74-106); Lipase 166 U/L (73-393); Potassium 4.1 mmol/L (3.5-5.1); Protein, Total 7.9 g/dL (6.4-8.2); Sodium Level 139 mmol/L (136-145)
--- NOTE | 2021-07-16 19:44 | RAD REPORT ---
EXAM DESCRIPTION: CT - Abdomen Pelvis W Contrast - 07/16/2021 7:23 pm CLINICAL HISTORY: Abdominal pain COMPARISON: none. TECHNIQUE: Computed axial tomography of the abdomen pelvis was obtained. 100 cc Isovue-300 was admin istered intravenously. Oral contrast was not requested which limits evaluation of bowel. All CT scans are performed using dose optimization technique as appropriate and may include automated exposure control or mA/KV adjustment according to patient size. FINDINGS: The liver, spleen, pancreas, adrenal and kidneys appear unremarkable. There is no evidence of diverticulitis. Normal appendix. Small left inguinal hernia IMPRESSION: No acute abnormality is displayed.
--- NOTE | 2021-07-16 19:48 | ER ---
Nurse's Notes [facility] Name: Gautam Dixon Jr Age: 41 yrs Sex: Male : 1980 Arrival Date: 07/16/2021 Time: 16:32 Bed 14 Private MD: Diagnosis: Upper abdominal pain, unspecified;Nausea with vomiting, unspecified Presentation: 07/16 16:38 Chief complaint: Patient states: RUQ abdominal pain, N/V/D started 30 minutes after jl7 lunch today. Coronavirus screen: At this time, the client does not indicate any symptoms associated with coronavirus-19. Ebola Screen: No symptoms or risks identified at this time. Initial Sepsis Screen: Does the patient meet any 2 criteria? No. Patient's initial sepsis screen is negative. Does the patient have a suspected source of infection? No. Patient's initial sepsis screen is negative. Risk Assessment: Do you want to hurt yourself or someone else? Patient reports no desire to harm self or others. Onset of symptoms was July 16, 2021. Care prior to arrival: None. 16:38 Method Of Arrival: Ambulatory 7 16:38 Acuity: SASHA 3 jl7 Triage Assessment: 16:40 General: Appears in no apparent distress. uncomfortable, Behavior is calm, cooperative, jl7 appropriate for age. Pain: Complains of pain in right upper quadrant Pain currently is 7 out of 10 on a pain scale. GI: Reports diarrhea, nausea, vomiting. Historical: - Allergies: 16:40 No Known Allergies; jl7 - Home Meds: 16:40 None [Active]; jl7 - PMHx: 16:40 None; jl7 - PSHx: 16:40 None; jl7 - Immunization history:: Client reports having NOT received the Covid vaccine. - Social history:: Smoking status: Patient reports the use of cigarette tobacco products, smokes one-half pack cigarettes per day. Screenin:35 Abuse screen: Denies threats or abuse. Denies injuries from another. Nutritional cb5 screening: No deficits noted. Tuberculosis screening: No symptoms or risk factors identified. 17:35 Fall Risk None identified. cb5 Assessment: 16:45 General: Appears in no apparent distress. comfortable, Behavior is calm, cooperative, cb5 appropriate for age. Pain: Complains of pain in left upper quadrant and abdomen and right upper quadrant Pain currently is 4 out of 10 on a pain scale. Neuro: No deficits noted. Cardiovascular: No deficits noted. Respiratory: No deficits noted. GI: Bowel sounds present X 4 quads. Abd is soft X 4 quads. : No deficits noted. EENT: No deficits noted. Derm: No deficits noted. Musculoskeletal: No deficits noted. 17:53 Reassessment: Lab is recollecting specimen.. cb5 18:27 Reassessment: Patient and/or family updated on plan of care and expected duration. Pain cb5 level reassessed. 19:16 Reassessment: To radiology via with [facility] for [facility]. tk1 19:35 Reassessment: Patient returned to ED [address] tk1 19:40 General: Appears in no apparent distress. comfortable, well groomed, well developed, tk1 well nourished, Behavior is calm, cooperative, appropriate for age. Pain: Denies pain. Neuro: No deficits noted. Level of Consciousness is awake, alert, obeys commands, Oriented to person, place, time, situation, Appropriate for age Data Communications Analyst are equal bilaterally Moves all extremities. Full function Gait is steady, Speech is normal, Facial symmetry appears normal. Cardiovascular: No deficits noted. Reports None. Respiratory: No deficits noted. Airway is patent Respiratory effort is even, unlabored, Respiratory pattern is regular, symmetrical. GI: Bowel sounds present X 4 quads. Abd is soft and non tender X 4 quads. Reports Abdominal pain improved with no new events of vomiting. : No deficits noted. No signs and/or symptoms were reported regarding the genitourinary system. EENT: No deficits noted. No signs and/or symptoms were reported regarding the EENT system. Derm: No deficits noted. No signs and/or symptoms reported regarding the dermatologic system. Musculoskeletal: No deficits noted. No signs and/or symptoms reported regarding the musculoskeletal system. 20:11 Reassessment: D/C per MD order. Discharge/Prescription instructions given to patient tk1 and . Verbalized understanding. Vital Signs: 16:38 BP 146 / 85; Pulse 92; Resp 17; Temp 98.9; Pulse Ox 100% on R/A; Weight 113.4 kg; jl7 Height 5 ft. 6 in. (167.64 cm); Pain 7/10; 19:40 BP 139 / 80 LA Supine (auto/reg); Pulse 80 MON; Resp 18 S; Temp 98.2(O); Pulse Ox 100% tk1 on R/A; Pain 0/10; 16:38 Body Mass Index 40.35 (113.40 kg, 167.64 cm) jl7 ED Course: 16:32 Patient arrived in ED. ds1 16:39 Aarti Velazquez FNP-C [facility]. kb 16:39 Samy Boss MD is Attending Physician. kb 16:40 Triage completed. jl7 16:40 Arm band placed on right wrist. jl7 16:42 Ghada Killian, RN is Primary Nurse. cb5 17:13 Basic Metabolic Panel Sent. cb5 17:13 CBC with Diff Sent. cb5 17:13 Hepatic Function Sent. cb5 17:13 Lipase Sent. cb5 17:13 COVID-19/FLU A+B (Document "Date of Onset" if Symptomatic) Sent. cb5 17:18 US Abdomen Limited In Process Unspecified. EDMS 17:35 Patient has correct armband on for positive identification. Bed in low position. Call cb5 light in reach. Side rails up X 1. 19:00 Report given to Henry Little cb5 19:11 Primary Nurse role handed off by Ghada Killian, RN cs9 19:16 Anabel Ramirez is Primary Nurse. tk1 19:23 CT Abd/Pelvis - IV Contrast Only In Process Unspecified. EDMS 19:40 Patient has correct armband on for positive identification. Bed in low position. Call tk1 light in reach. Side rails up X2. 19:40 No provider procedures requiring assistance completed. IV is patent. tk1 20:11 IV discontinued, intact, bleeding controlled, No redness/swelling at site. Pressure tk1 dressing applied. Administered Medications: 17:15 Drug: Zofran (Ondansetron) 4 mg Route: IVP; Site: left antecubital; cb5 20:14 Follow up: Response: No adverse reaction; Nausea is decreased; Vomiting decreased tk1 17:15 Drug: NS 0.9% 1000 ml Route: IV; Rate: 1000 ml; Site: left antecubital; cb5 20:13 Follow up: IV Status: Completed infusion; IV converted to saline lock; IV Intake: [id number] Intake: 20:13 IV: 1000ml; Total: 1000ml. tk1 Outcome: 19:48 Discharge ordered by MD. louie 20:11 Discharged to home ambulatory, with family. tk1 20:11 Condition: improved 20:11 Discharge instructions given to patient, family, Instructed on discharge instructions, follow up and referral plans. medication usage, Demonstrated understanding of instructions, follow-up care, medications. 20:12 Patient left the ED. tk1 Signatures: Dispatcher [employer] EDIN Aarti Velazquez, LINE PATROLMAN-C LINE PATROLMAN-CkLila Alanis ds1 Omar Dejesus, RN RN jl7 Jocelyne Santamaria cs9 Anabel Ramirez tk1 Ghada Killian, RN RN cb5
--- NOTE | 2021-07-16 19:48 | EDPHYS ---
Physician Documentation [facility] Name: Gautam Dixon Jr Age: 41 yrs Sex: Male : 1980 Arrival Date: 07/16/2021 Time: 16:32 Bed 14 Private MD: ED Physician Samy Boss HPI: 07/16 17:12 This 41 yrs old Black Male presents to ER via Ambulatory with complaints of Abdominal kb Pain. 17:12 The patient presents with abdominal pain in the upper abdomen. Onset: The kb symptoms/episode began/occurred today. The symptoms do not radiate. Associated signs and symptoms: Pertinent positives: nausea and vomiting, Pertinent negatives: diarrhea, fever. The symptoms are described as constant. Modifying factors: The symptoms are alleviated by nothing, the symptoms are aggravated by nothing. Severity of pain: At its worst the pain was moderate in the emergency department the pain is unchanged. The patient has not experienced similar symptoms in the past. The patient has not recently seen a physician. Pt reports upper abd pain, nausea and vomiting that started after lunch. Historical: - Allergies: 16:40 No Known Allergies; jl7 - Home Meds: 16:40 None [Active]; jl7 - PMHx: 16:40 None; jl7 - PSHx: 16:40 None; jl7 - Immunization history:: Client reports having NOT received the Covid vaccine. - Social history:: Smoking status: Patient reports the use of cigarette tobacco products, smokes one-half pack cigarettes per day. ROS: 17:12 Constitutional: Negative for fever, chills, and weight loss. kb 17:12 Abdomen/GI: Positive for abdominal pain, nausea and vomiting, Negative for diarrhea, constipation. 17:12 All other systems are negative. Exam: 17:12 Constitutional: This is a well developed, well nourished patient who is awake, alert, kb and in no acute distress. Head/Face: Normocephalic, atraumatic. Cardiovascular: Regular rate and rhythm with a normal S1 and S2. No gallops, murmurs, or rubs. No pulse deficits. Respiratory: Respirations even and unlabored. No increased work of breathing. Talking in full sentences Skin: Warm, dry with normal turgor. Normal color. MS/ Extremity: Pulses equal, no cyanosis. Neurovascular intact. Full, normal range of motion. Neuro: Awake and alert, GCS 15, oriented to person, place, time, and situation. Moves all extremities. Normal gait. Psych: Awake, alert, with orientation to person, place and time. Behavior, mood, and affect are within normal limits. 17:12 Abdomen/GI: Inspection: abdomen appears normal, Bowel sounds: normal, in all quadrants, Palpation: soft, in all quadrants, mild abdominal tenderness, in the right upper quadrant and left upper quadrant. Vital Signs: 16:38 BP 146 / 85; Pulse 92; Resp 17; Temp 98.9; Pulse Ox 100% on R/A; Weight 113.4 kg; jl7 Height 5 ft. 6 in. (167.64 cm); Pain 7/10; 19:40 BP 139 / 80 LA Supine (auto/reg); Pulse 80 MON; Resp 18 S; Temp 98.2(O); Pulse Ox 100% tk1 on R/A; Pain 0/10; 16:38 Body Mass Index 40.35 (113.40 kg, 167.64 cm) jl7 MDM: 16:43 Patient medically screened. kb 17:12 Data reviewed: vital signs, nurses notes. Data interpreted: Pulse oximetry: on room air kb is 100 %. Interpretation: normal. 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 07/16 16:46 Order name: Basic Metabolic Panel; Complete Time: 18:55 kb 07/16 16:46 Order name: CBC with Diff; Complete Time: 17:23 kb 07/16 16:46 Order name: Hepatic Function; Complete Time: 18:55 kb 07/16 16:46 Order name: Lipase; Complete Time: 18:55 kb 07/16 16:46 Order name: COVID-19/FLU A+B (Document "Date of Onset" if Symptomatic); Complete Time: kb 18:01 07/16 16:46 Order name: US Abdomen Limited; Complete Time: 17:26 kb 07/16 16:46 Order name: IV Saline Lock; Complete Time: 17:12 kb 07/16 16:46 Order name: Labs collected and sent; Complete Time: 17:12 kb 07/16 17:24 Order name: Labs - recollect needed: recollect green top; Complete Time: 18:42 bd 07/16 18:28 Order name: CT Abd/Pelvis - IV Contrast Only; Complete Time: 19:47 kb Administered Medications: 17:15 Drug: Zofran (Ondansetron) 4 mg Route: IVP; Site: left antecubital; cb5 20:14 Follow up: Response: No adverse reaction; Nausea is decreased; Vomiting decreased tk1 17:15 Drug: NS 0.9% 1000 ml Route: IV; Rate: 1000 ml; Site: left antecubital; cb5 20:13 Follow up: IV Status: Completed infusion; IV converted to saline lock; IV Intake: [id number] Disposition: 07/17 07:57 Co-signature as Attending Physician, Samy Boss MD I agree with the assessment and kdr plan of care. Disposition Summary: 07/16/21 19:48 Discharge Ordered Location: Home kb Condition: Stable kb Diagnosis - Upper abdominal pain, unspecified kb - Nausea with vomiting, unspecified kb Followup: kb - With: Emergency Department - When: As needed - Reason: Worsening of condition Followup: kb - With: Private Physician - When: 2 - 3 days - Reason: Recheck today's complaints, Continuance of care, Re-evaluation by your physician Discharge Instructions: - Discharge Summary Sheet kb - Nausea and Vomiting, Adult, [id number] kb - Abdominal Pain, Adult, [id number] kb Forms: - Medication Reconciliation Form kb - Thank You Letter kb - Antibiotic Education kb - Prescription Opioid Use kb Prescriptions: - Zofran 4 mg Oral Tablet - take 1 tablet by ORAL route every 6 hours As needed; 20 tablet; Refills: 0, kb Product Selection Permitted Signatures: Dispatcher [employer] Aarti Lincoln FNP-C FNP-Ckb Dirrim, Barbara bd Rittger, Kevin, MD MD kdr Omar Dejesus, RN RN jl7 Ghada Killian, RN RN cb5 Anabel Ramirez tk1
[2021-07-16 20:28] VITALS: O2SAT 100
[2021-07-16 20:30] VITALS: BP 139/80; TEMP 98.2
== END 2021-07-16 20:12 | disposition home or self-care (01) ==
LOC: ER 16:30
DX: R10.10 Upper abdominal pain, unspecified (principal); R11.2 Nausea with vomiting, unspecified; Z20.822 Contact with and (suspected) exposure to COVID-19
CPT/HCPCS: 96361; 85025; 80048; 36415; 80076; 83690; 0240U; 74177; 76705; 96374; 99283; Q9967; J7030; J2405

== ENCOUNTER 2023-02-24 15:17 | Inpatient (IN) | payer OTHER, SELFPAY ==
[2023-02-24] MEDS ORDERED: MAGNES/ALUMIN/SIMET 30ML UCUP ONE (15:57)
[2023-02-24] MEDS ORDERED: ASPIRIN 81 MG CHEWABLE TABLET ONE (15:57)
[2023-02-24] MEDS ORDERED: FAMOTIDINE 20 MG/2 ML VIAL IV ONE (15:57)
--- NOTE | 2023-02-24 16:05 | RAD REPORT ---
EXAM DESCRIPTION: RAD - Chest Pa And Lat (2 Views) - 02/24/2023 3:47 pm CLINICAL HISTORY: CHEST PAIN COMPARISON: No comparisons TECHNIQUE: PA and lateral views of the chest were obtained. FINDINGS: The lungs are clear. Heart size is normal and central vasculature is within normal limits. No pleural effusion or pneumothorax seen. No acute bony finding noted. IMPRESSION: No acute cardiopulmonary process.
[2023-02-24 17:09] LABS: Lymphocytes % 24.6 % (15.3-44.8); MCV 86.1 fL (80-100); MPV 7.4 fL (7.6-11.3); Platelets 335 thou/uL (152-406); RBC Red Blood Cell Count 4.64 M/uL (4.33-5.43)
[2023-02-24 17:30] LABS: ALT/SGPT 23 U/L (16-61); AST/SGOT 19 U/L (15-37); Albumin 3.8 g/dL (3.4-5.0); Alkaline Phosphatase 79 U/L (45-117); BUN Blood Urea Nitrogen 11 mg/dL (7-18); Bicarbonate 25 mEq/L (21-32); Bilirubin Total 0.2 mg/dL (0.2-1.0); Glomerular Filtration Rate 102 ml/min (=/>90); Glucose Level 116 mg/dL (74-106); Magnesium 2.4 mg/dL (1.6-2.4); NT PRO-BNP 23 pg/mL (<125); Potassium 3.5 mEq/L (3.5-5.1); Protein, Total 8.3 g/dL (6.4-8.2); Sodium Level 137 mEq/L (136-145); Troponin High Sensitivity 43.8 pg/mL (<58.9)
[2023-02-24 17:31] LABS: Bilirubin Direct < 0.1 mg/dL (0-0.2); Bilirubin Indirect, Calculated ND mg/dL (0.2-0.8)
--- NOTE | 2023-02-24 17:52 | EDPHYS ---
Physician Documentation [facility] Name: Gautam Dixon Jr Age: 43 yrs Sex: Male : 1980 Arrival Date: 02/24/2023 Time: 15:17 Bed 6 Private MD: ED Physician Freddie Wills HPI: 02/24 15:30 This 43 yrs old Black Male presents to ER via Ambulatory with complaints of Chest Pain. ms3 15:30 43-year-old male with no past medical history presents for chest pain that began on ms3 waking up this morning. Patient states pain is a 9/10 described as burning/stabbing. Patient denies any alleviating or inciting factors. Patient has not experienced this pain in the past. Patient denies nausea, vomiting, diaphoresis. Patient endorses shortness of breath. Patient took 2-[address] to the emergency department.. Historical: - Allergies: 15:28 No Known Allergies; me1 - Home Meds: 15:28 None [Active]; me1 - PMHx: 15:28 None; me1 - Immunization history:: Adult Immunizations up to date. - Social history:: Smoking status: Patient reports the use of cigarette tobacco products, smokes one-half pack cigarettes per day. ROS: 15:30 Constitutional: Negative for fever, and chills. ENT: Negative for injury, pain, and ms3 discharge, Neck: Negative for injury, pain, and swelling, 15:30 Back: Negative for injury and pain, MS/Extremity: Negative for injury and deformity, Skin: Negative for injury, rash, and discoloration, 15:30 Cardiovascular: Positive for chest pain, 15:30 Respiratory: Positive for shortness of breath, 15:30 All other systems are negative, Exam: 15:30 Constitutional: This is a well developed, well nourished patient who is awake, alert, ms3 and in no acute distress. Head/Face: Normocephalic, atraumatic. Neck: Trachea midline, no cervical lymphadenopathy. Supple, full range of motion without nuchal rigidity, or vertebral point tenderness. No Meningismus. Chest/axilla: Normal chest wall appearance and motion. Nontender with no deformity. Cardiovascular: Regular rate and rhythm with a normal S1 and S2. No gallops, murmurs, or rubs. Normal PMI, no JVD. No pulse deficits. Respiratory: Lungs have equal breath sounds bilaterally, clear to auscultation and percussion. No rales, rhonchi or wheezes noted. No increased work of breathing, no retractions or nasal flaring. Abdomen/GI: Soft, non-tender, with normal bowel sounds. No distension or tympany. No guarding or rebound. No evidence of tenderness throughout. Skin: Warm, dry with normal turgor. Normal color with no rashes, no lesions, and no evidence of cellulitis. MS/ Extremity: Pulses equal, no cyanosis. Neurovascular intact. Full, normal range of motion. 15:59 ECG was reviewed by the Attending Physician. ms3 Vital Signs: 15:26 Pulse 76; Resp 24; Temp 98.4(O); Pulse Ox 100% on R/A; Weight 113.4 kg; Height 5 ft. 6 me1 in. ; Pain 9/10; 15:29 BP 133 / 99 Sitting; me1 16:02 BP 171 / 72; Pulse 67; Resp 18; Pulse Ox 100% on R/A; ld1 20:43 BP 184 / 78; Pulse 58; Resp 17; Pulse Ox 100% on R/A; lg3 15:26 Body Mass Index 40.35 (113.40 kg, 167.64 cm) me1 15:26 Pain Scale: Adult me1 MDM: 15:30 Differential diagnosis: abnormal EKG, acute myocardial infarction, pneumonia, ms3 pneumothorax, pulmonary embolus. 15:31 Patient medically screened. ms3 17:53 HEART Score: History: Moderately Suspicious (1), ECG: Non specific repolarization ms3 disturbance / LBTB / PM (1), Age: < or = 45 years (0), Risk Factors: No Risk Factors Known (0), Troponin: < or = 1 x Normal Limit (0), Total Score = 0. The patient was given aspirin in the Emergency Department. Data reviewed: vital signs, nurses notes, lab test result(s), EKG, radiologic studies, plain films, and as a result, I will admit patient. Consideration of Admission/Observation Patient was admitted/placed on observation. Management of patient was discussed with the following: Hospitalist: MICHELE Pineda on behalf of Dr Zhong. Microbiology Analyst: Dr Valencia. I considered the following discharge prescriptions or medication management in the emergency department Medications were administered in the Emergency Department. See MAR. Independent interpretation of the following test(s) in the Emergency Department EKG: See my EKG interpretation above X-Ray: My interpretation is CXR image reviewed by me does not show PNA or PTX. Care significantly affected by the following Social Determinants of Health: Poor access to healthcare and/or lack of insurance. Counseling: I had a detailed discussion with the patient and/or guardian regarding the historical points, exam findings, and any diagnostic results supporting the discharge/admit diagnosis, lab results, radiology results, the need for further work-up and treatment in the hospital. ED course: Discussed observation with patient. Patient understands agrees with plan. All questions were answered. Case was discussed with Dr. Tovar and he agrees with observation.. 02/24 15:29 Order name: Basic Metabolic Panel; Complete Time: 17:33 ms3 02/24 15:29 Order name: CBC with Diff; Complete Time: 17:22 ms3 02/24 15:29 Order name: D-Dimer; Complete Time: 17:50 ms3 02/24 15:29 Order name: LFT's; Complete Time: 17:33 ms3 02/24 15:29 Order name: Magnesium; Complete Time: 17:33 ms3 02/24 15:29 Order name: NT PRO-BNP; Complete Time: 17:33 ms3 02/24 15:29 Order name: Troponin HS; Complete Time: 17:33 ms3 02/24 15:29 Order name: Chest Pa And Lat (2 Views) XRAY; Complete Time: 16:08 ms3 02/24 15:29 Order name: EKG; Complete Time: 15:30 ms3 18 18:41 Order name: CONS Physician Consult EDMS 02/24 15:29 Order name: Cardiac monitoring; Complete Time: 16:02 ms3 02/24 15:29 Order name: EKG - Nurse/Tech; Complete Time: 16:02 ms3 02/24 15:29 Order name: IV Saline Lock; Complete Time: 17:24 ms3 02/24 15:29 Order name: Labs collected and sent; Complete Time: 17:24 ms3 02/24 15:29 Order name: O2 Per Protocol; Complete Time: 15:47 ms3 02/24 15:29 Order name: O2 Sat Monitoring; Complete Time: 15:47 ms3 02/24 16:53 Order name: Labs - recollect needed: recollect light blue top; Complete Time: 17:27 bd EC:59 Rate is 61 beats/min. Rhythm is regular. QRS [place] is Normal. [place] interval is normal. QRS ms3 interval is normal. Clinical impression: NSR w/ Non-specific ST/T Changes. Interpreted by me. Reviewed by me. Administered Medications: 15:47 Drug: Aspirin PO Chewable Tablet 162 mg PO once; 81 mg tablets x 2 Route: PO; ld1 15:47 Drug: Alum-Mag Hydroxide-Simeth PO Suspension (200 mg-200 mg-20 mg/5 mL) 30 ml PO once ld1 Route: PO; 17:24 Drug: Famotidine IVP 20 mg IVP once; dilute with 10 mL 0.9% NaCl; give over 2 minutes ld1 Route: IVP; Site: left upper arm; Disposition Summary: 02/24/23 17:52 Hospitalization Ordered Notes: Hospitalization Status: Observation ms3 Provider: Vinay Zhong ms3 Location: Telemetry/MedSurg (observation) ms3 Condition: Stable ms3 Problem: new ms3 Symptoms: are unchanged ms3 Bed/Room Type: Standard ms3 Room Assignment: 228(02/24/23 20:33) cg Diagnosis - Chest pain, unspecified ms3 - Elevated blood-pressure reading, without diagnosis of hypertension ms3 - Abnormal electrocardiogram [ECG] [EKG] ms3 Forms: - Medication Reconciliation Form ms3 - SBAR form ms3 - Leadership Thank You Letter ms3 Signatures: Dispatcher [employer] Nuzhat Lu Cindy, RN RN cg Freddie Wills DO DO ms3 Augustina Wills RN RN ld1 Marlena Emanuel RN RN me1 Corrections: (The following items were deleted from the chart) 20:33 17:52 ms3 cg
--- NOTE | 2023-02-24 17:52 | ER ---
Nurse's Notes [facility] Name: Gautam Dixon Jr Age: 43 yrs Sex: Male : 1980 Arrival Date: 02/24/2023 Time: 15:17 Bed 6 Private MD: Diagnosis: Chest pain, unspecified;Elevated blood-pressure reading, without diagnosis of hypertension;Abnormal electrocardiogram [ECG] [EKG] Presentation: 02/24 15:26 Chief complaint: Patient states: chest pain across chest, 9/10, burning, stabbing since me1 waking up this morning. c/o sob. Coronavirus screen: Vaccine status: Patient reports being unvaccinated. Ebola Screen: No symptoms or risks identified at this time. Initial Sepsis Screen: Does the patient meet any 2 criteria? No. Patient's initial sepsis screen is negative. Does the patient have a suspected source of infection? No. Patient's initial sepsis screen is negative. Risk Assessment: Do you want to hurt yourself or someone else? Patient reports no desire to harm self or others. Onset of symptoms was February 24, 2023. 15:26 Method Of Arrival: Ambulatory me1 15:26 Acuity: SASHA 3 me1 Historical: - Allergies: 15:28 No Known Allergies; me1 - Home Meds: 15:28 None [Active]; me1 - PMHx: 15:28 None; me1 - Immunization history:: Adult Immunizations up to date. - Social history:: Smoking status: Patient reports the use of cigarette tobacco products, smokes one-half pack cigarettes per day. Screenin:02 [facility] ED Fall Risk Assessment (Adult) History of falling in the last 3 months, ld1 including since admission No falls in past 3 months (0 pts). Abuse screen: Denies threats or abuse. Denies injuries from another. Nutritional screening: No deficits noted. Tuberculosis screening: No symptoms or risk factors identified. Assessment: 16:02 General: Appears in no apparent distress. uncomfortable, Behavior is calm, cooperative, ld1 appropriate for age. Pain: Complains of pain in chest Pain does not radiate. Pain currently is 8 out of 10 on a pain scale. Quality of pain is described as sharp, shooting, throbbing, Pain began 4 hours ago. Is continuous. Neuro: Level of Consciousness is awake, alert, obeys commands, Oriented to person, place, time, situation. Cardiovascular: Capillary refill < 3 seconds Patient's skin is warm and dry. Rhythm is sinus rhythm. Respiratory: Airway is patent Respiratory effort is even, unlabored. GI: Abdomen is round non-distended, obese. : No signs and/or symptoms were reported regarding the genitourinary system. EENT: No signs and/or symptoms were reported regarding the EENT system. Derm: No signs and/or symptoms reported regarding the dermatologic system. Musculoskeletal: No signs and/or symptoms reported regarding the musculoskeletal system. Vital Signs: 15:26 Pulse 76; Resp 24; Temp 98.4(O); Pulse Ox 100% on R/A; Weight 113.4 kg; Height 5 ft. 6 me1 in. ; Pain 9/10; 15:29 BP 133 / 99 Sitting; me1 16:02 BP 171 / 72; Pulse 67; Resp 18; Pulse Ox 100% on R/A; ld1 20:43 BP 184 / 78; Pulse 58; Resp 17; Pulse Ox 100% on R/A; lg3 15:26 Body Mass Index 40.35 (113.40 kg, 167.64 cm) me1 15:26 Pain Scale: Adult me1 ED Course: 15:18 Patient arrived in ED. mr 15:19 Freddie Wills DO is Attending Physician. ms3 15:21 Attending Physician role handed off by Freddie Wills DO cp3 15:21 Erik Yuen MD is Attending Physician. cp3 15:28 Freddie Wills DO is Attending Physician. ms3 15:28 Triage completed. me1 15:28 Arm band placed on Patient placed in waiting room. me1 15:37 Madelyn Medellin, DORENE is Primary Nurse. ko1 15:48 Chest Pa And Lat (2 Views) XRAY In Process Unspecified. EDMS 16:02 Patient has correct armband on for positive identification. Placed in gown. Bed in low ld1 position. Call light in reach. Side rails up X2. school bus monitor on. Pulse ox on. NIBP on. Door closed. Noise minimized. Warm blanket given. 16:02 No provider procedures requiring assistance completed. Missed attempt(s): 20 gauge in ld1 right antecubital area. Patient maintains SpO2 saturation greater than 95% on room air. 17:29 by me, sent to lab. Inserted saline lock: 22 gauge in left upper arm, using aseptic jl7 technique. Blood collected. 17:51 Vinay Zhong MD is Hospitalizing Provider. ms3 21:17 Patient admitted, IV remains in place. intact, No redness/swelling at site. 3 Administered Medications: 15:47 Drug: Aspirin PO Chewable Tablet 162 mg PO once; 81 mg tablets x 2 Route: PO; ld1 15:47 Drug: Alum-Mag Hydroxide-Simeth PO Suspension (200 mg-200 mg-20 mg/5 mL) 30 ml PO once ld1 Route: PO; 17:24 Drug: Famotidine IVP 20 mg IVP once; dilute with 10 mL 0.9% NaCl; give over 2 minutes ld1 Route: IVP; Site: left upper arm; Medication: 16:02 VIS not applicable for this client. ld1 Outcome: 17:52 Decision to Hospitalize by Provider. ms3 21:11 Admitted to Med/surg accompanied by tech, via wheelchair, room 228, Report called to [facility] Karla 21:11 Condition: stable 21:11 Instructed on the need for admit, Demonstrated understanding of instructions, 21:55 Patient left the ED. [facility] Signatures: Dispatcher [employer] Erik Lewis MD MD cp3 Angela Schulte, Reg Reg mr DejesusOmar, RN RN jl7 Yessenia Roberts RN RN 3 Freddie Wills, DO DO sd3 Augustina Wills RN RN ld1 Amira French RN RN jw7 Madelyn Medellin RN RN koMarlena Wayne, RN RN me1 Corrections: (The following items were deleted from the chart) 21:07 20:43 BP 184 / 83; Pulse 58bpm; Resp 17bpm; Pulse Ox 100% RA; jwBassam [facility]
--- NOTE | 2023-02-24 18:22 | P.HP ---
Certification for Inpatient Patient admitted to: Inpatient With expected LOS: <2 Midnights Patient will require the following post-hospital care: None Practitioner: I am a practitioner with admitting privileges, knowledge of patient current condition, hospital course, and medical plan of care. Services: Services provided to patient in accordance with Admission requirements found in Title 42 Section 412.3 of the Code of Federal Regulations Patient History Date of Service: 02/25/23 Reason for admission: Chest pain History of Present Illness: 43-year-old -Ind[place]ian male with no prior medical history presents to the emergency room with chest pain. he reports taking [address] to the emergency department. He reports chest pain started this morning, described as a burning, stabbing, 9 out of 10. He denied nausea, vomiting, diaphoresis, no reported chest pain radiaton. Plan to admit for- Chest pain, unspecified, Elevated blood-pressure reading, without diagnosis of hypertension, Abnormal electrocardiogram, Rate is 61 beats/min. Rhythm is regular. QRS Glade is Normal. TN interval is normal. QRS interval is normal. Clinical impression: NSR w/ Non- specific ST/T ChangesLaboratory evaluation CBC 12.30, no left shift, glucose 116 CMP unremarkable troponin normal at 43.8, BNP BNP 23, chest x-ray IMPRESSION: No acute cardiopulmonary process. Allergies No Known Allergies Allergy (Unverified 01/30/18 02:45) Home Medications: NK [No Home Meds] 02/24/23 - Past Medical/Surgical History Past Medical History: Patient denies medical history -: Testicular torsion - Family History Father -: Heart disease - Social History Smoking Status: Current some day smoker Alcohol use: Yes CD- Drugs: No Caffeine use: No Place of Residence: Home Review of Systems 10-point ROS is otherwise unremarkable Physical Examination - Physical Exam General: Alert, In no apparent distress, Oriented x3 HEENT: Atraumatic, Normocephalic, PERRLA Neck: Supple, 2+ carotid pulse no bruit Respiratory: Clear to auscultation bilaterally, Normal air movement Cardiovascular: No edema, Normal pulses, Regular rate/rhythm Capillary refill: <2 Seconds Gastrointestinal: Normal bowel sounds, Soft and benign Musculoskeletal: No clubbing, No swelling Integumentary: No rashes, No breakdown Neurological: Normal speech, Normal strength at 5/5 x4 extr - Studies Laboratory Data (last 24 hrs) 02/24/23 02/24/23 16:59 16:59 WBC 12.30 H Hgb 12.9 L Hct 40.0 Plt Count 335 Sodium 137 Potassium 3.5 BUN 11 Creatinine 0.94 Glucose 116 H Magnesium 2.4 Total Bilirubin 0.2 AST 19 ALT 23 Alkaline Phosphatase 79 Assessment and Plan - Plan Assessment plan NSTEMI Chest pain, unspecified Elevated blood-pressure reading, without diagnosis of hypertension Abnormal electrocardiogram, DVT prophylaxis Assessment plan NSTEMI Chest pain, unspecified Elevated blood-pressure reading, without diagnosis of hypertension, Abnormal electrocardiogram Started on a heparin drip, repeat troponin 2903 Cardiology consult, trend troponins, lipid panel in the a.m. Aspirin, antilipid, p.o. antihypertensive Rate is 61 beats/min. Rhythm is regular. QRS Glade is Normal. TN interval is normal. QRS interval is normal. Clinical impression: NSR w/ Non-specific ST/T ChangesLaboratory evaluation CBC 12.30, no left shift, glucose 116 CMP unremarkable troponin normal at 43.8, BNP BNP 23, chest x-ray IMPRESSION: No acute cardiopulmonary process. Diet n.p.o. after midnight Full code DVT heparin drip Discharge Plan: Home Plan to discharge in: 48 Hours - Advance Directives Does patient have a Living Will: No Does patient have a Durable POA for Healthcare: No - Code Status/Comfort Care Code Status Assessed: Yes Code Status: Full Code Physician Review: Patient Assessed, Agree with Above Assessment and Plan Critical Care: No Time Spent Managing Pts Care (In Minutes): 50
[2023-02-24] MEDS: METOPROLOL TAR 25 MG TAB PO SCH (22:56)
[2023-02-24] MEDS ORDERED: HEPARIN/D5W 25,000 UNIT/500 ML BAG IV SCH (23:14)
[2023-02-24] MEDS ORDERED: NITROGLYCERIN 0.4 MG/TAB SL PRN (23:18)
[2023-02-24] MEDS ORDERED: METOPROLOL TARTRATE 5 MG/5 ML INJ IV PRN (23:18)
[2023-02-25 00:01] LABS: Absolute Lymphocytes (CBC) 4.2 K/uL (0.7-4.9); Hematocrit 36.1 % (39.6-49.0); Lymphocytes % 35.9 % (15.3-44.8); MCV 85.7 fL (80-100); MPV 7.5 fL (7.6-11.3); Platelets 313 thou/uL (152-406); RBC Red Blood Cell Count 4.22 M/uL (4.33-5.43)
[2023-02-25 00:24] LABS: Protime INR 1.09
[2023-02-25] MEDS: METOPROLOL TAR 25 MG TAB PO SCH ×2 (06:22→17:16)
[2023-02-25 06:26] LABS: Absolute Lymphocytes (CBC) 4.6 K/uL (0.7-4.9); Hematocrit 38.5 % (39.6-49.0); MCV 86.1 fL (80-100); MPV 7.9 fL (7.6-11.3); Platelets 333 thou/uL (152-406); RBC Red Blood Cell Count 4.47 M/uL (4.33-5.43)
[2023-02-25 06:43] LABS: Magnesium 2.5 mg/dL (1.6-2.4); Potassium 3.6 mEq/L (3.5-5.1)
[2023-02-25] MEDS ORDERED: ENOXAPARIN 40 MG/0.4 ML SQ SCH (09:00)
[2023-02-25] MEDS ORDERED: ASPIRIN 325 MG TAB PO SCH (09:00)
[2023-02-25] MEDS ORDERED: NA CHLORIDE 0.9% 500 ML ONE (09:16)
[2023-02-25] MEDS ORDERED: HEPA 1000U/500MLS 2,000 UNIT/1,000 ML BAG IV ONE (10:55)
[2023-02-25] MEDS ORDERED: FENTANYL CITR 100 MCG/2 ML ONE (10:55)
[2023-02-25] MEDS ORDERED: MIDAZOLAM HCL 2 MG/2 ML INJ ONE (10:55)
[2023-02-25] MEDS ORDERED: LIDOCAINE 1% 20 ML MDV ONE (10:55)
[2023-02-25] MEDS ORDERED: VERAPAMIL HCL 10 MG/4 ML VIAL IV ONE (10:56)
[2023-02-25] MEDS ORDERED: NITROGLYCERIN/D5W 50 MG/250 ML BTL IV ONE (10:56)
[2023-02-25] MEDS ORDERED: HEPARIN 5000 UNIT/ML 1 ML VIAL ONE ×2 (10:56→11:52)
[2023-02-25] MEDS ORDERED: CLOPIDOGREL 75 MG TABLET ONE (12:08)
--- NOTE | 2023-02-25 12:55 | CON ---
Date of Consultation: 02/25/2023 Reason For Consultation: Chest pain and elevated troponin. History Of Present Illness: A 43-year-old male, comes in with chest pain, retrosternal, radiates to the neck and the left upper extremity. EKG did not show STEMI, but he had a significant elevation in troponin, treated with heparin and nitroglycerin, pain subsided and he is completely pain-free today . Past Medical History: None. Medications: None. Allergies: NO KNOWN DRUG ALLERGIES. Family History: No premature coronary artery disease or cancer. Social History: He smokes close to a pack per day. Does not drink or use any drugs. Review of Systems: All systems reviewed and they were negative except what mentioned in HPI. Physical Examination: Vital Signs: Reviewed. Head and Neck: Pupils are equal, reactive to light. Intact eye movements. No JVD. No cervical lym phadenopathy. Neck is supple. Thyroid is not enlarged. Lungs: Clear to auscultation bilaterally. No rhonchi, wheezing, or crackles. No accessory muscle u se. Heart: Regular rate and rhythm. No extra sounds. Abdomen: Soft, nontender. Bowel sounds positive. No organomegaly. No masses or hernia. No rigidi ty or rebound. Extremities: No edema, clubbing, or cyanosis. Intact pulses. Skin: No rash. Neurologic: Alert, awake, oriented x3. No acute focal deficits appreciated. Investigations: Labs were reviewed. Assessment And Recommendations: Non-ST elevation myocardial infarction. Keep n.p.o., coronary angio gram today, and PCI as indicated. Continue IV heparin and aspirin and recommend to add high dose of statin, Lipitor 40 mg at bedtime and stop smoking. SR/MODL Voice ID: [id number] Report ID: [id number]
--- NOTE | 2023-02-25 13:25 | OP ---
Date of Procedure: 02/25/2023 Surgeon: RENATE BURGESS Procedures Performed: 1.Selective coronary angiogram. 2.Left heart catheterization. 3.PCI of severe distal RCA, used 3.0 x 60 mm Synergy drug-eluting stent. Indication: Non-ST elevation myocardial infarction. DICTATION ENDS HERE SR/MADELYN Voice ID: [id number] Report ID: [id number]
--- NOTE | 2023-02-25 14:04 | OP ---
Date of Procedure: 02/25/2023 Surgeon: RENATE BURGESS Procedures Performed: 1.Selective coronary angiogram. 2.Left heart catheterization. 3.PCI of severe distal RCA to the culprit for the TX. I used 3.0 x 60 mm Synergy drug-eluting stent . Indication: Non-ST elevation myocardial infarction. Access: Right radial artery 6-[place] closed with TR band. Complications: None. Bleeding: Less than 20 mL. Complications: None. Anesthesia: Total sedation time was 30 minutes. Description Of Procedure: After risks, benefits, alternatives were explained, the patient agreed to procedure and signed informed consent. The patient was brought into the cardiac catheterization [facility], prepped and draped in the usual sterile fashion. Then, I accessed right radial artery using pediatric micropuncture kit, placed a 6-[place]izen [place] Slender sheath, took 5-[place] Garner 4.0 catheter into the aortic root, engaged left main and right coronary artery, took standard views. The catheter was pushed over the wire into the LV, measured the LVEDP, pullback did not record any gradient. Then, I gave systemic heparin to assure ACT level above 250 throughout the procedure. Gave 600 mg of Plavix and the patient already received an aspirin. Then, I took a 6-[place]izen [place] JR4 guide into the aortic root over a J-wire, engaged the RCA stent, a Run-Through wire into the distal RCA and then using a 3.0 bal loon, lesion was pre-dilated and expanded very well and then I placed 3.0 x 16 mm Synergy drug-elutin g stent with excellent expansion. Final angiogram was satisfactory. I removed the wire and the guid e and sheath and placed TR band with good hemostasis. Findings: 1.Left main; large and normal. 2.LAD; large vessel with proximal 30%, then mid and there is another 40% stenosis. 3.Ramus has proximal 40% stenosis. 4.Left circumflex; very large and codominant and in the distal portion, there is a 70% stenosis, but the vessel becomes small and OM1 branch has mid 50% to 60%. 5.RCA; it is codominant circulation with mid 30%, distal 99% which is a culprit, status post success ful PCI as above. The PDA has diffuse 70% to 80% stenosis, but the vessel is less than 1.5 mm in siz e. 6.LVEDP elevated at 19 mmHg. Conclusions: 1.Severe distal RCA stenosis, which is the culprit for the TX, status post successful PCI as above. 2.Moderate coronary artery disease elsewhere. Plan: 1.Aspirin, Plavix, and high-dose statin. 2.Quit smoking. SR/MODL Voice ID: [id number] Report ID: [id number]
[2023-02-25] MEDS ORDERED: ACETAMINOPHEN 325 MG TABLET PO PRN (16:08)
--- NOTE | 2023-02-25 19:00 | P.PN ---
Subjective Date of Service: 02/25/23 Chief Complaint: Chest pain Status post cardiac catheterization today. Physical Examination - Vital Signs Temperature: 98.5 F Blood Pressure: 179/90 Pulse: 61 Respirations: 16 Pulse Ox (%): 100 Assessment And Plan - Plan Physical Exam General: Alert, In no apparent distress, Oriented x3 Respiratory: Clear to auscultation bilaterally, Normal air movement Cardiovascular: No edema, Normal pulses, Regular rate/rhythm Gastrointestinal: Normal bowel sounds, Soft and benign Musculoskeletal: No clubbing, No swelling Integumentary: No rashes, No breakdown Neurological: Normal speech, Normal strength at 5/5 x4 extr Diagnosis NSTEMI Elevated blood-pressure reading, without diagnosis of hypertension Plan Patient treated with heparin drip, troponin trended up to 2000s Seen by cardiology Dr. Valencia. Cardiac catheterization done and RCA stented. Continue aspirin, Plavix and Lipitor. Cardiology to follow. Monitor BP. Titrate metoprolol. Metoprolol IV as needed Full code
[2023-02-25] MEDS ORDERED: ATORVASTATIN 40 MG TAB PO SCH (21:00)
[2023-02-25 22:46] VITALS: BMI 40.3
[2023-02-26 03:30] LABS: Absolute Lymphocytes (CBC) 2.8 K/uL (0.7-4.9); Hematocrit 38.4 % (39.6-49.0); Lymphocytes % 26.2 % (15.3-44.8); MCV 85.9 fL (80-100); MPV 7.8 fL (7.6-11.3); Platelets 346 thou/uL (152-406); RBC Red Blood Cell Count 4.48 M/uL (4.33-5.43)
[2023-02-26 03:51] LABS: Magnesium 2.7 mg/dL (1.6-2.4); Potassium 3.9 mEq/L (3.5-5.1)
[2023-02-26] MEDS: METOPROLOL TAR 25 MG TAB PO SCH (05:23)
[2023-02-26] MEDS ORDERED: CLOPIDOGREL 75 MG TABLET PO SCH (09:00)
[2023-02-26] MEDS ORDERED: ASPIRIN 81 MG CHEWABLE TABLET PO SCH (09:00)
[2023-02-26] MEDS ORDERED: POTASSIUM CL SA 10 MEQ TAB PO ONE (09:00)
--- NOTE | 2023-02-26 09:07 | P.DS ---
Admission Date: 02/24/23 Discharge Date: 02/26/23 Disposition: ROUTINE DISCHARGE Discharge Condition: FAIR Reason for Admission: Chest pain - Problems (1) NSTEMI (non-ST elevated myocardial infarction) Status: Acute Brief History of Present Illness: 43-year-old -Turkmen male with no prior medical history presentes to the emergency room with a complaint of chest pain. He reports taking [address] to the emergency department. He described a burning, stabbing, 9 out of 10 chest pain. No associated nausea, vomiting, or diaphoresis. Patient noted to be hypertensive in the ED. EKG did not show acute ischemic triggers. Initial troponin was normal, checks x-ray did not show any acute cardiopulmonary process. Patient was hospitalized for ACS rule out. Hospital Course: Patient admitted to the medical floor. His troponin trended up and peaked at 2000. He was started on heparin drip. Cardiology Dr. Valencia was consulted who recommended cardiac catheterization. Cardiac catheterization revealed distal RCA occlusion which was successfully stented.. Patient was monitored overnight. His vitals have been stable. He has been asymptomatic, tolerating diet. He is deemed stable for discharge by cardiology. Patient has been informed to follow- up with Dr. Valencia within 1 week. He has been placed on aspirin and Plavix, Lipitor and metoprolol. I discussed compliance to these medications. The patient voiced understanding. Vital Signs/Physical Exam: Temp Pulse Resp BP Pulse Ox 97.8 F 68 18 158/70 H 100 02/26/23 04:00 02/26/23 05:23 02/26/23 04:00 02/26/23 05:23 02/26/23 04:00 General: Alert, In no apparent distress, Oriented x3 HEENT: Mucous membr. moist/pink Neck: Supple, JVD not distended Respiratory: Clear to auscultation bilaterally, Normal air movement Cardiovascular: No edema, Regular rate/rhythm, Normal S1 S2 Gastrointestinal: Normal bowel sounds, Soft and benign, Non-distended, No tenderness Musculoskeletal: No swelling Integumentary: No rashes, No cyanosis Neurological: Normal strength at 5/5 x4 extr Laboratory Data at Discharge: WBC 10.60 thou/uL (4.3-10.9) 02/26/23 02:34 Hgb 12.8 g/dL (13.6-17.9) L 02/26/23 02:34 Hct 38.4 % (39.6-49.0) L 02/26/23 02:34 Plt Count 346 thou/uL (152-406) 02/26/23 02:34 PT 12.0 SECONDS (9.5-12.5) 02/24/23 23:48 INR 1.09 02/24/23 23:48 APTT 56.7 SECONDS (24.3-36.9) H 02/25/23 15:50 Sodium 139 mEq/L (136-145) 02/26/23 02:34 Potassium 3.9 mEq/L (3.5-5.1) 02/26/23 02:34 BUN 10 mg/dL (7-18) 02/26/23 02:34 Creatinine 1.01 mg/dL (0.70-1.30) 02/26/23 02:34 Glucose 110 mg/dL (74-106) H 02/26/23 02:34 Magnesium 2.7 mg/dL (1.6-2.4) H 02/26/23 02:34 Total Bilirubin 0.2 mg/dL (0.2-1.0) 02/24/23 16:59 AST 19 U/L (15-37) 02/24/23 16:59 ALT 23 U/L (16-61) 02/24/23 16:59 Alkaline Phosphatase 79 U/L (45-117) 02/24/23 16:59 Triglycerides 251 mg/dL (<150) H 02/25/23 05:45 Cholesterol 227 mg/dL (<200) H 02/25/23 05:45 HDL Cholesterol 25 mg/dL (40-60) L 02/25/23 05:45 Cholesterol/HDL Ratio 9.08 02/25/23 05:45 Home Medications: Aspirin Chewable [Aspirin Chewable*] 81 mg PO DAILY #30 tab.chew 02/26/23 Atorvastatin Calcium [Lipitor] 40 mg PO BEDTIME #30 tab 02/26/23 Clopidogrel Bisulfate [Plavix*] 75 mg PO DAILY #30 tab 02/26/23 Metoprolol Tartrate [Lopressor*] 25 mg PO BID 6AM 6PM #60 tab 02/26/23 New Medications: Aspirin Chewable [Aspirin Chewable*] 81 mg PO DAILY #30 tab.chew Atorvastatin Calcium [Lipitor] 40 mg PO BEDTIME #30 tab Metoprolol Tartrate [Lopressor*] 25 mg PO BID 6AM 6PM #60 tab Clopidogrel Bisulfate [Plavix*] 75 mg PO DAILY #30 tab Diet: AHA Activity: Ad trudy Followup: NONE,NONE [Primary Care Provider] - Kirk Valencia MD [ACTIVE - CAN ADMIT] - 1 Week Time spent managing pt's care (in minutes): 33
[2023-02-26 09:59] VITALS: BP 182/89; TEMP 97
[2023-02-26 11:21] VITALS: O2SAT 99
--- NOTE | 2023-02-26 14:39 | EKG ---
Test Date: 2023-02-24 Test Time: 15:51:41 [employer] [place]: MEASUREMENT RESULTS: Intervals: Rate: 61 NV: 142 QRSD: 84 QT: 412 QTc: 414 [place]: P: NV: 142 QRS: 42 T: -63 INTERPRETIVE STATEMENTS: Normal sinus rhythm Marked ST abnormality, possible inferior subendocardial injury Abnormal ECG No previous ECG available for comparison Electronically Signed On 02-26-23 14:33:44 CDT by Kirk Valencia
== END 2023-02-26 11:25 | disposition home or self-care (01) | DRG 247 ==
LOC: ER 15:17 → ERHOLD 18:38 → 2ND 21:08
PROVIDERS: ADMIT Internal Medicine; ATTEND Internal Medicine
PROC: B2151ZZ Fluoroscopy of Left Heart using Low Osmolar Contrast (ICD-10-PCS; 2023-02-24)
PROC: 027034Z Dilation of Coronary Artery, One Artery with Drug-eluting Intraluminal Device, Percutaneous Approach (ICD-10-PCS; principal; 2023-02-25)
PROC: 4A023N7 Measurement of Cardiac Sampling and Pressure, Left Heart, Percutaneous Approach (ICD-10-PCS; 2023-02-25)
PROC: B2111ZZ Fluoroscopy of Multiple Coronary Arteries using Low Osmolar Contrast (ICD-10-PCS; 2023-02-25)
DX: I21.4 Non-ST elevation (NSTEMI) myocardial infarction (principal); I25.10 Atherosclerotic heart disease of native coronary artery without angina pectoris; R03.0 Elevated blood-pressure reading, without diagnosis of hypertension; F17.210 Nicotine dependence, cigarettes, uncomplicated; Z82.49 Family history of ischemic heart disease and other diseases of the circulatory system
CPT/HCPCS: 36415; 71046; 76937; 80048; 80061; 80076; 83735; 83880; 84484; 85025; 85347; 85379; 85610; 85730; 92928; 93005; 93458; 96374; 99285; C1725; C1893; J1644; J2001; J2250; J3010; J7040; Q9967